=== PATIENT | female | born 1965 | race Caucasian/White ===

== ENCOUNTER → 2017-04-06 18:15 | Outpatient (CLI) | payer OTHER, SELFPAY ==
[2017-04-14 11:08] LABS: HPV HC, High Risk Negative (Negative)
[2017-04-14 11:10] LABS: HPV Reflexed? YES, CHARGE PATIENT
== END ==
PROVIDERS: Family Provider Family Medicine; PCP Family Medicine; Visit Provider Obstetrics & Gynecology
DX: Z12.4 Encounter for screening for malignant neoplasm of cervix (principal)
CPT/HCPCS: 87624; 88175; G0145

== ENCOUNTER → 2017-04-14 08:39 | Outpatient (CLI) | payer OTHER, SELFPAY ==
--- NOTE | 2017-04-14 08:44 | HPBI_ITS ---
MAMMOGRAPHY - BILATERAL SCREENING REASON FOR EXAM: Female, 51 years old. Routine annual screening examination. PERTINENT HISTORY: Non-contributory. Remote bilateral excisional breast biopsies. TECHNIQUE: Digital bilateral breast rj (3D mammographic acquisition) in the CC and MLO projections. 2-D mediolateral oblique (MLO) and craniocaudad (CC) views of both breasts were obtained. CAD: Full Field Digital Mammography with Computer Added Detection was performed. COMPARISON: Comparison is made with prior study dated October 13, 2013 and August 25, 2011. FINDINGS: Breast Composition: There are scattered areas of fibroglandular density. There are no dominant masses or suspicious calcifications. No other significant abnormalities are identified. There has been no significant change since the prior study. HPBI/SCREENING MAMM (CAD), BILAT IMPRESSION: Stable bilateral screening mammogram. Yearly follow-up mammogram recommended. (A) ASSESSMENT CATEGORY: BIRADS Category 1: Negative. A letter regarding these results will be sent to the patient by the facility within 30 days. Approximately 10% of breast cancers are not detected by mammography. A normal mammogram should not delay biopsy of a clinically suspicious abnormality. [id number] Electronically Signed: Jorge Boyle MD at 10:57 EST Tel [phone], Service support ,
== END ==
PROVIDERS: Family Provider Family Medicine; PCP Family Medicine; Visit Provider Obstetrics & Gynecology
DX: Z12.31 Encounter for screening mammogram for malignant neoplasm of breast (principal)
CPT/HCPCS: 77063; 77067

== ENCOUNTER → 2017-07-16 08:36 | Outpatient (CLI) | payer OTHER, SELFPAY ==
--- NOTE | 2017-07-16 08:36 | DT_ITS ---
This patient was seen during an EMR downtime July 12, 2017 - July 19, 2017. This patient may have a combination of paper and electronic documentation or all paper documentation. All documentation is viewable within the e-chart portion of [employer] for each patient visit.
[2017-07-20 16:06] LABS: Anion Gap 8 (5-15); BUN 15 mg/dL (7-18); Calcium,Total 9.4 mg/dL (8.5-10.1); Chloride 107 mmol/L (98-107); Cholesterol 190 mg/dL (200); Creatinine, Serum 0.75 mg/dL (0.55-1.02); EST Glomerular Filtration Rate 86 mL/min (>60); Est Glom Filt Rate - Afr Amer 104 mL/min (>60); Glucose 104 mg/dL (74-106); High Density Lipoprotein 40 mg/dL; Potassium 4.3 mmol/L (3.5-5.1); Sodium Level 140 mmol/L (136-145); Triglycerides 119 mg/dL; Very Low Density Lipoprotein 24 mg/dL (5-40)
[2017-07-20 16:07] LABS: Thyroid Stim Hormone (TSH) 2.41 uIU/mL (0.358-3.74)
[2017-07-20 16:16] LABS: Vitamin D,25 Hydroxy 8.9 ng/mL (29.95-100.01)
== END ==
PROVIDERS: Visit Provider Family Medicine
DX: Z13.21 Encounter for screening for nutritional disorder (principal); Z13.220 Encounter for screening for lipoid disorders; Z13.29 Encounter for screening for other suspected endocrine disorder; Z13.1 Encounter for screening for diabetes mellitus
CPT/HCPCS: 36415; 80048; 80061; 82306; 84443

== ENCOUNTER 2017-08-25 07:48 | Day surgery (SDC) | payer OTHER, SELFPAY ==
--- NOTE | 2017-08-25 | COLBX_PTH ---
PATIENT: LILLIANA DELGADO LOC: EN U#:[id number] AGE/SX: 52/F ROOM: RE08/25/[address]: Dr. Sharee Kellogg MD : 1965 BED: DIS: 08/25/2017 SPEC #: [id number] RECD: 08/25/17 14:00 STATUS: ELDER RIKI #: [id number] ANGELA: 08/25/17 00:[address]: Sharee Kellogg DEPT: SURGICAL PATHOLOGY RECD BY: Kenji Martinez ENTERED: 08/25/17 14:00 SP TYPE: COLON BX OTHR DR: Dr. Ed Farris MD Tissues: A - Cecum, NOS B - Sigmoid colon biopsy Procedures: Surgery Specimen Level IV HEADER OPERATION: Colonoscopy PRE-OP DIAGNOSIS: Screening TISSUE SUBMITTED: A ? Cecum polyp biopsy, B ? Sigmoid polyp biopsy MICROSCOPIC DIAGNOSIS A. Cecal polyp, biopsy: Benign colonic mucosa. See comment. B. Sigmoid colon polyp, biopsy: Chronic mucosa with focal hyperplastic change. BERTO:nathaly 08/26/17 COMMENT A. Neither hyperplastic nor adenomatous change is seen. Clinical correlation is suggested. MICROSCOPIC DESCRIPTION Slides are reviewed. GROSS DESCRIPTION A - Received in fixative is one container labeled with the patient's name and designated cecum polyp biopsy. The specimen consists of one irregular fragment of light ott soft tissue that measures 0.3 x 0.3 x 0.1 cm. The specimen is totally submitted in one cassette. B - Received in fixative is one container labeled with the patient's name and designated sigmoid polyp biopsy. The specimen consists of one irregular fragment of light ott soft tissue that measures 0.8 x 0.3 x 0.1 cm. The specimen is totally submitted in one cassette. / BERTO:nathaly 08/25/17 TC:5 CPT: 34621 x2
[2017-08-25 08:16] VITALS: BP 153/86; PULSE 62; RESP 16; TEMP 36.8; O2SAT 100; BMI 37.3
[2017-08-25 09:36] VITALS: BP 113/65; BP 153/86; PULSE 74; RESP 18; TEMP 36.8; O2SAT 98
[2017-08-25 09:40] VITALS: BP 114/68; BP 153/86; PULSE 66; RESP 18; O2SAT 99
[2017-08-25 09:45] VITALS: BP 128/85; BP 153/86; PULSE 70; RESP 18; O2SAT 100
[2017-08-25 09:50] VITALS: BP 141/85; BP 153/86; PULSE 69; RESP 18; TEMP 36.8; O2SAT 99
--- NOTE | 2017-08-25 09:52 | PCM.OPRPT ---
Report of Operation Date of Procedure: 08/25/17 Pre-Operative Diagnosis: Screening for colon cancer Post-Operative Diagnosis: Small cecal and sigmoid colon polyp, mild sigmoid diverticulosis Surgery/Procedure Performed:: Colonoscopy with biopsy Type of Anesthesia:: MAC Anesthesiologist: Da Zhang Specimen's removed: 1 cecal polyp, 2 sigmoid polyp Estimated Blood Loss (mL): Minimal Description of Procedure: Procedure: Colonoscopy After reviewing the risks benefits, the patient was deemed in satisfactory condition to undergo procedure. After obtaining informed consent, the scope was passed under direct visualization. Throughout the procedure, the patient's blood pressure pulse and position saturations were monitored continuously anesthesia. The colonoscope was introduced through the anus and advanced to the cecum, identified by the appendiceal orifice, IC valve and transillumination. The colonoscopy was performed without difficulty. The patient tolerated procedure well. Quality of bowel prep was good. Findings: The perianal and digital rectal exam were normal. Small sessile cecal polyp and small sessile sigmoid polyp removed using cold forceps biopsies and sent to pathology. There is mild diverticulosis in the sigmoid colon. Otherwise the colon (entire examined portion) appeared normal. Retroflexed view of the distal rectum and anal verge was normal and showed no anal or rectal abnormalities Impression: 1. Small sessile cecal and sigmoid colon polyps moved completely with cold forceps. 2. The distal rectal and anal verge were normal on retroflexed view. Recommendations: Await biopsies Repeat colonoscopy in 3-5 years for screening purposes - Complications none
[2017-08-25 10:13] VITALS: BP 153/86
== END 2017-08-25 10:20 | disposition home or self-care (01) ==
LOC: EN 07:49 → AC 07:50
PROVIDERS: Family Provider Family Medicine; PCP Family Medicine; Visit Provider Surgery
PROC: 0DJD8ZZ Inspection of Lower Intestinal Tract, Via Natural or Artificial Opening Endoscopic (ICD-10-PCS; CPT 45378; principal; 2017-08-25 08:55)
DX: Z12.11 Encounter for screening for malignant neoplasm of colon (principal); K63.5 Polyp of colon; K57.30 Diverticulosis of large intestine without perforation or abscess without bleeding; Z98.51 Tubal ligation status
CPT/HCPCS: 45380; 88305; J7120

== ENCOUNTER → 2017-11-22 14:06 | Outpatient (CLI) | payer OTHER, SELFPAY | PROVIDERS: Family Provider Family Medicine; PCP Family Medicine; Visit Provider Family Medicine | DX: E55.9 Vitamin D deficiency, unspecified (principal) | CPT/HCPCS: 36415; 82306 ==

== ENCOUNTER → 2018-07-12 13:44 | Outpatient (CLI) | payer OTHER, SELFPAY | PROVIDERS: Family Provider Family Medicine; PCP Family Medicine; Referring Provider Family Medicine; Visit Provider Family Medicine | DX: E55.9 Vitamin D deficiency, unspecified (principal) | CPT/HCPCS: 36415; 82306 ==

== ENCOUNTER → 2020-04-03 11:21 | Outpatient (CLI) | payer OTHER, SELFPAY ==
--- NOTE | 2020-04-03 11:24 | BI_ITS ---
MAMMOGRAPHY - BILATERAL SCREENING REASON FOR EXAM: Female, 54 years old. Routine annual screening examination. PERTINENT HISTORY: Non-contributory. TECHNIQUE: Digital bilateral breast tegan (3D mammographic acquisition) in the CC and MLO projections. 2-D mediolateral oblique (MLO) and craniocaudad (CC) views of both breasts were obtained. CAD: Full Field Digital Mammography with Computer Added Detection was performed. COMPARISON: Comparison is made with prior study of 04/14/2017 and 10/13/2013. FINDINGS: Breast Composition: There are scattered areas of fibroglandular density. There are no dominant masses or suspicious calcifications. No other significant abnormalities are identified. There has been no significant change since the prior study. BI/SCRN MAMM (CAD)W/TEGAN BILAT IMPRESSION: Stable bilateral screening mammogram. Yearly follow-up mammogram recommended. (A) ASSESSMENT CATEGORY: BIRADS Category 1: Negative. A letter regarding these results will be sent to the patient by the facility within 30 days. Approximately 10% of breast cancers are not detected by mammography. A normal mammogram should not delay biopsy of a clinically suspicious abnormality. [id number] Electronically Signed: Jorge Boyle MD at 12:33 EST , Service support ,
== END ==
PROVIDERS: PCP Family Medicine; Referring Provider Nurse Practitioner Women's Health; Visit Provider Nurse Practitioner Women's Health
DX: Z12.31 Encounter for screening mammogram for malignant neoplasm of breast (principal)
CPT/HCPCS: 77063; 77067

== ENCOUNTER → 2020-04-04 | Outpatient (CLI) | payer OTHER, SELFPAY ==
[2020-04-04 09:27] VITALS: BMI 42.9
[2020-04-08 20:58] LABS: HPV APTIMA, High Risk Negative (Negative)
== END | disposition home or self-care (01) ==
LOC: LABSPEC 11:55
PROVIDERS: PCP Family Medicine; Referring Provider Nurse Practitioner Women's Health; Visit Provider Nurse Practitioner Women's Health
DX: Z12.4 Encounter for screening for malignant neoplasm of cervix (principal)
CPT/HCPCS: 87624; 88175; G0145

== ENCOUNTER → 2020-04-19 08:19 | Outpatient (CLI) | payer OTHER, SELFPAY ==
[2020-04-04 09:27] VITALS: BMI 42.9
[2020-04-19 10:27] LABS: Vitamin D,25 Hydroxy 43.5 ng/mL
[2020-04-19 10:42] LABS: Anion Gap 6 (5-15); BUN 14 mg/dL (7-18); BUN/Creat Ratio 18.9 RATIO (10-20); Calcium,Total 9.7 mg/dL (8.5-10.1); Chloride 107 mmol/L (98-107); Cholesterol 191 mg/dL (200); Creatinine, Serum 0.74 mg/dL (0.55-1.02); EST Glomerular Filtration Rate 86 mL/min (>60); Est Glom Filt Rate - Afr Amer 105 mL/min (>60); Glucose 103 mg/dL (74-106); High Density Lipoprotein 43 mg/dL; Potassium 4.2 mmol/L (3.5-5.1); Sodium Level 138 mmol/L (136-145); Thyroid Stim Hormone (TSH) 2.18 uIU/mL (0.358-3.74); Triglycerides 122 mg/dL; Very Low Density Lipoprotein 24 mg/dL (5-40)
== END ==
PROVIDERS: PCP Family Medicine; Referring Provider Family Medicine; Visit Provider Family Medicine
DX: E55.9 Vitamin D deficiency, unspecified (principal); Z13.220 Encounter for screening for lipoid disorders; Z13.1 Encounter for screening for diabetes mellitus; Z13.29 Encounter for screening for other suspected endocrine disorder
CPT/HCPCS: 36415; 80048; 80061; 82306; 84443

== ENCOUNTER → 2023-07-14 | Outpatient (CLI) | payer OTHER, SELFPAY ==
--- NOTE | 2023-07-14 12:16 | BI_ITS ---
MAMMOGRAPHY - BILATERAL SCREENING REASON FOR EXAM: Female, 58 years old. Routine annual screening examination. PERTINENT HISTORY: Non-contributory. History of prior bilateral breast biopsies. TECHNIQUE: Digital bilateral breast tegan (3D mammographic acquisition) in the CC and MLO projections. 2-D mediolateral oblique (MLO) and craniocaudad (CC) views of both breasts were obtained. CAD: Full Field Digital Mammography with Computer Added Detection was performed. COMPARISON: Comparison is made with prior study dated April 03, 2020 and April 14, 2017. FINDINGS: Breast Composition: There are scattered areas of fibroglandular density. There are no dominant masses or suspicious calcifications. No other significant abnormalities are identified. There has been no significant change since the prior study. BI/SCRN MAMM (CAD)W/TEGAN BILAT IMPRESSION: Stable bilateral screening mammogram. Yearly follow-up mammogram recommended. (A) ASSESSMENT CATEGORY: BIRADS Category 1: Negative. A letter regarding these results will be sent to the patient by the facility within 30 days. Approximately 10% of breast cancers are not detected by mammography. A normal mammogram should not delay biopsy of a clinically suspicious abnormality. [id number] Electronically Signed: Jorge Boyle MD at 14:40 EDT ,
== END | disposition home or self-care (01) ==
PROVIDERS: PCP Family Medicine; Referring Provider Family Medicine; Visit Provider Family Medicine
DX: Z12.31 Encounter for screening mammogram for malignant neoplasm of breast (principal)
CPT/HCPCS: 77063; 77067

== ENCOUNTER → 2023-08-24 | Outpatient (CLI) | payer OTHER, SELFPAY ==
[2023-08-24 10:26] LABS: Vitamin D,25 Hydroxy 37.7 ng/mL
[2023-08-24 10:34] LABS: Anion Gap 4 (5-15); BUN 15 mg/dL (7-18); BUN/Creat Ratio 18.9 RATIO (10-20); Calcium,Total 9.9 mg/dL (8.5-10.1); Chloride 107 mmol/L (98-107); Cholesterol 174 mg/dL (200); Creatinine, Serum 0.79 mg/dL (0.55-1.02); EST Glomerular Filtration Rate 79 mL/min (>60); Est Glom Filt Rate - Afr Amer 96 mL/min (>60); Glucose 115 mg/dL (74-106); High Density Lipoprotein 55 mg/dL; Sodium Level 139 mmol/L (136-145); Triglycerides 130 mg/dL; Very Low Density Lipoprotein 26 mg/dL (5-40)
== END | disposition home or self-care (01) ==
LOC: MFPLAB 08:43
PROVIDERS: PCP Family Medicine; Visit Provider Family Medicine
DX: Z13.29 Encounter for screening for other suspected endocrine disorder (principal); Z13.220 Encounter for screening for lipoid disorders; Z13.1 Encounter for screening for diabetes mellitus; E55.9 Vitamin D deficiency, unspecified
CPT/HCPCS: 36415; 80048; 80061; 82306; 84443

== ENCOUNTER 2025-01-09 15:13 | Outpatient (CLI) | payer OTHER, SELFPAY ==
[2025-01-09 18:30] LABS: Vitamin D,25 Hydroxy 31.1 ng/mL (30-100)
== END 2025-01-09 23:59 | disposition home or self-care (01) ==
LOC: MTLAB 15:15
PROVIDERS: PCP Family Medicine; Referring Provider Nurse Practitioner Family; Visit Provider Nurse Practitioner Family
DX: Z13.1 Encounter for screening for diabetes mellitus (principal)
CPT/HCPCS: 36415; 82306; 83036